=== PATIENT | male | born 1980 | race Caucasian/White ===

== ENCOUNTER 2017-08-07 10:40 | Day surgery (SDC) | payer BC ==
[2017-08-07 11:39] VITALS: RESP 20; TEMP 97.9
[2017-08-07] MEDS ORDERED: ATROPINE SULFATE 0.4 MG/ML 20 ML VIAL IM STA (11:57)
[2017-08-07] MEDS ORDERED: LIDOCAINE 2% (PF) 20 MG/ML 2 ML VIAL INHALATION STA (12:00)
[2017-08-07] MEDS ORDERED: LACTATED RINGERS 1,000 ML IV ONE ×2 (12:07)
[2017-08-07 12:09] LABS: Glucose,Whole Blood 88 mg/dL (75-99)
[2017-08-07] MEDS ORDERED: fentaNYL (PF) 50 MCG/ML 2 ML AMP ONE (12:13)
[2017-08-07] MEDS ORDERED: GLYCOPYRROLATE 0.2 MG/ML 2 ML VIAL ONE (12:13)
[2017-08-07] MEDS ORDERED: LIDOCAINE 2% INJ 20 MG/ML INTRATRACH ONE (12:13)
[2017-08-07] MEDS ORDERED: PROPOFOL 10 MG/ML 20 ML VIAL IV ONE (12:13)
[2017-08-07] MEDS ORDERED: LIDOCAINE 1% INJ 10MG/ML (20 ML MDV) ONE (12:13)
[2017-08-07 12:48] VITALS: PULSE 96
[2017-08-07 13:00] VITALS: BP 115/80
[2017-08-07 15:21] LABS: Appearance,BF Hazy
[2017-08-07 15:22] LABS: Nucleated Cells, Body Fluid 7 /uL; RBC, Body Fluid 16 /uL
[2017-08-07 15:23] LABS: Appearance,BF Hazy
[2017-08-07 15:25] LABS: Nucleated Cells, Body Fluid 2 /uL; RBC, Body Fluid 14 /uL
--- NOTE | 2017-08-07 15:30 | PCN ---
PROCEDURE NOTE PROCEDURE: Bronchoscopy, airway examination, therapeutic lavage, BAL right lower lobe, BAL left lower lobe. PREOP DIAGNOSIS: Pneumonia. POSTOP DIAGNOSIS: Pneumonia. The patient's procedure was done in room #3. There was informed consent. There was universal timeout, [employer] provided unconscious sedation general anesthesia. After the patient was adequately sedated and being fully monitored, the bronchoscope was then inserted through the right nostril. It passed through the right nasopharynx into the oropharynx. The hypopharynx was identified. The hypopharyngeal structures including anterior commissure, true cords, false cords, arytenoids, piriform sinuses, right and left vallecula and epiglottis all appeared normal. After topicalization, the bronchoscope was pushed through the glottic opening into the trachea. Trachea was normal. Trachea jennifer was sharp. Right and left mainstem were topicalized. Next, the right upper lobe and its 3 mm, right middle lobe in its 2 segments right lower lobe and its 5 segments left upper lobe proper and its 2 separate lingular 2 segments. The left lower lobe and its 4 segments all had similar findings of diffuse mild to moderate bronchitis. There was no discrete mass or tumor. There was some secretions noted. They were mildly purulent. They appeared mostly white, but did not have any color to them. There was no bleeding. Next, the bronchoscope was wedged into the right lower lobe and the BAL took place. Finally, the bronchoscope was wedged into the left lower lobe and the BAL took place. The patient tolerated the procedure well. The bronchoscope was withdrawn. There was no immediate complications. The patient will be recovered. Sampling of both areas will be sent to the laboratory for analysis. MMODL / IJN: [id number] /
== END 2017-08-07 13:10 | disposition home or self-care (01) ==
LOC: ORWHC2ENDO 10:40
PROVIDERS: ATTEND Internal Medicine Critical Care Medicine
DX: J40 Bronchitis, not specified as acute or chronic (principal); J18.9 Pneumonia, unspecified organism; Z79.01 Long term (current) use of anticoagulants; Z79.899 Other long term (current) drug therapy; Z86.711 Personal history of pulmonary embolism; I31.3 Pericardial effusion (noninflammatory); I31.9 Disease of pericardium, unspecified
CPT/HCPCS: 87798 ×3; 87496; 87498; 87529 ×2; 88108; 88305; 89050; 87252; 87502; 87634; 87070; 87205; 87116; 87102; 87206; 31624; J2001 ×2; J3010; J2704

== ENCOUNTER → 2017-08-12 | Outpatient (CLI) | payer BC ==
--- NOTE | 2017-08-14 11:38 | PE ---
"Nuclear medicine PET/CT HISTORY: Lung cancer, initial Patient received 13.34 mCi F-18 FDG intravenously and delayed scanning performed from skull base to t he mid thighs. Localization and attenuation correction CT scan was performed. Exam is correlated to alice clark chest x-ray 07/20/2017. FINDINGS: Neck and chest: There is no evident adenopathy. No suspicious hypermetabolic uptake. Some small preva scular nodes are present. There is a small pericardial effusion present, dimension approximately 9 mm in thickness. Hiatal hernia noted incidentally. Small nodular densities present in the posterior cos tophrenic angles measure only approximately 13 mm on the left than on axial image 122, 7 mm on the ri ght. Associated with the posterior aspect of the major fissure on the right and nodular density measu res 12 mm in the right lower lobe which may be postinflammatory. There is no associated hypermetaboli c uptake. Incidental note made of sinus disease maxillary sinuses. Abdomen pelvis: No retroperitoneal adenopathy. No evident adrenal mass or liver mass. No suspicious h ypermetabolic uptake. There is some fluid in the pelvis. Prostatic calcifications are present. No ing uinal or pelvic adenopathy. 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 Correlate for any history of prior trauma. No associ ated hypermetabolic uptake. IMPRESSION: Pericardial effusion. Indeterminate lung nodules are small, no suspicious hypermetabolic uptake, follow-up recommended. Small amount of fluid is present in the pelvis which is indeterminate. Consider follow-up. Correlate for possible prior trauma to the left humerus, arthropathy noted in th e left shoulder. A [place] [facility] critical message alert has been initiated for Fred Pollack DO via the [employer] 36 0 | Critical Results System on 08/14/2017 11:34 AM. This message alert has been sent to Fred Pollack DO via the preferences provided by the clinician for the receipt of Radiology Critical Findings. Id ssage ID [id number]."
== END | disposition home or self-care (01) ==
LOC: RADPETMAIN 09:34
PROVIDERS: ATTEND Internal Medicine Critical Care Medicine
DX: I31.3 Pericardial effusion (noninflammatory) (principal); M19.012 Primary osteoarthritis, left shoulder
CPT/HCPCS: 78815; A9552

== ENCOUNTER → 2017-09-19 | Outpatient (CLI) | payer BC ==
--- NOTE | 2017-09-19 11:56 | CT ---
EXAMINATION TYPE: CT chest w con DATE OF EXAM: 09/19/2017 COMPARISON: PET/CT August 12, 2017. HISTORY: Shortness of breath and chest discomfort per patient. Pneumonia per order. CT DLP: 686 mGycm. Automated Exposure Control for Dose Reduction was Utilized. TECHNIQUE: CT scan of the thorax is performed following with IV Contrast, patient injected with 100 mL of Isovue 300. FINDINGS: LUNGS: There is minimal posterior left basilar linear scarring that remains present near axial image 46. There is focal linear scarring right lung base laterally axial image 48. There is persistent 12 x 9 mm scarlike opacity right lung base axial image 39 that does not show hypermetabolic uptake on rec ent PET CT. No suspicious parenchymal nodules or masses are otherwise identified bilaterally. No pleu ral effusion or pneumothorax is seen on current study. Tracheobronchial tree is patent. MEDIASTINUM: There are no greater than 1 cm hilar or mediastinal lymph nodes. No cardiomegaly is se en. Stable small pericardial effusion is noted. OTHER: Subcentimeter splenule anterior to superior spleen axial image 44 is stable. Trace anterior pe rihepatic ascites is seen on current study axial image 55. IMPRESSION: 1. Interval resolution of small right pleural effusion and improvement in bibasilar atelectasis. Mini mal residual bibasilar linear scarring. No suspicious acute pulmonary process. 2. Stable small pericardial effusion of uncertain etiology may warrant further clinical workup. 3. Stable 12 x 9 mm ametabolic scarlike opacity right lung base favoring postinflammatory etiology, c onsider follow-up CT in 6 months time to document stability however.
== END | disposition home or self-care (01) ==
LOC: RADCTMAIN 09:11
PROVIDERS: ATTEND Internal Medicine Critical Care Medicine
DX: I31.3 Pericardial effusion (noninflammatory) (principal); J98.4 Other disorders of lung; R91.8 Other nonspecific abnormal finding of lung field
CPT/HCPCS: 71260; Q9967